=== PATIENT | male | born 1990 | race Caucasian/White ===

== ENCOUNTER 2017-07-19 17:05 | Emergency (ER) | payer OTHER | END 2017-07-19 19:03 | disposition home or self-care (01) | LOC: D.ER 17:05 | DX: S52.002A Unspecified fracture of upper end of left ulna, initial encounter for closed fracture (principal); Y04.2XXA Assault by strike against or bumped into by another person, initial encounter; Y93.89 Activity, other specified; Y92.89 Other specified places as the place of occurrence of the external cause ==